=== PATIENT | male | born 1930 | race Caucasian/White ===

== ENCOUNTER 2017-06-28 12:52 | Emergency (ER) | payer OTHER ==
[~2017-06-28] VITALS: Ht 170.2 cm; Wt 77.1 kg
[2017-06-28 12:58] VITALS: BP 177/83
== END 2017-06-28 14:21 | disposition home or self-care (01) ==
LOC: ER 12:54
DX: S51.012A Laceration without foreign body of left elbow, initial encounter (principal); I10 Essential (primary) hypertension; I25.2 Old myocardial infarction; W01.0XXA Fall on same level from slipping, tripping and stumbling without subsequent striking against object, initial encounter; Y93.89 Activity, other specified; Y92.89 Other specified places as the place of occurrence of the external cause; Y99.9 Unspecified external cause status
CPT/HCPCS: 99283; A4606; A6403; Z7610

== ENCOUNTER 2017-06-30 11:50 | Emergency (ER) | payer OTHER ==
[~2017-06-30] VITALS: Ht 170.2 cm; Wt 72.6 kg
[2017-06-30 11:50] VITALS: BP 145/73
== END 2017-06-30 13:22 | disposition home or self-care (01) ==
LOC: ER 11:52
DX: S51.812A Laceration without foreign body of left forearm, initial encounter (principal); I10 Essential (primary) hypertension; I25.2 Old myocardial infarction; W01.0XXA Fall on same level from slipping, tripping and stumbling without subsequent striking against object, initial encounter; Y93.89 Activity, other specified; Y92.89 Other specified places as the place of occurrence of the external cause; Y99.8 Other external cause status
CPT/HCPCS: 99281; A4606; A6402; A6403; Z7502; Z7610

== ENCOUNTER 2017-07-03 13:35 | Emergency (ER) | payer BC, OTHER ==
[~2017-07-03] VITALS: Ht 170.2 cm; Wt 74.8 kg
[2017-07-03] MEDS ORDERED: SILVER NITRATE APPLICATOR 1 EA BOX ONE (14:33)
[2017-07-03 14:52] VITALS: BP 132/76
== END 2017-07-03 15:05 | disposition home or self-care (01) ==
LOC: ER 13:40
DX: S51.802D Unspecified open wound of left forearm, subsequent encounter (principal); I25.2 Old myocardial infarction; I10 Essential (primary) hypertension; W01.0XXD Fall on same level from slipping, tripping and stumbling without subsequent striking against object, subsequent encounter; Y93.89 Activity, other specified; Y92.89 Other specified places as the place of occurrence of the external cause; Y99.8 Other external cause status
CPT/HCPCS: 99282; A4606; A6402; Z7610

== ENCOUNTER 2018-02-09 09:00 | Emergency (ER) | payer BC, OTHER ==
[~2018-02-09] VITALS: Ht 170.2 cm; Wt 79.8 kg
--- NOTE | 2018-02-09 09:04 | NUR ---
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 VSS. NO ACUTE DISTRESS. NEG SOB. SAFETY MEASURES IN PLACE. CALL LIGHT WITHIN REACH.
--- NOTE | 2018-02-09 09:10 | NUR ---
NEW IV STARTED ON RFA, 18G. BLOOD DRAWN AND SENT TO LAB.
[2018-02-09 09:24] LABS: BASOPHILS # (AUTO) 0.1 /CMM (0.0-0.2); BASOPHILS % (AUTO) 0.7 % (0.0-2.0); EOSINOPHILS % (AUTO) 2.4 % (0.0-6.0); HEMATOCRIT 37 % (39-51); HEMOGLOBIN 12.6 g/dL (13.5-17.5); LYMPHOCYTES # (AUTO) 2.4 /CMM (0.8-4.8); LYMPHOCYTES % (AUTO) 32.7 % (20.0-44.0); MEAN CORPUSCULAR HGB CONC 34 g/dl (31.0-36.0); MEAN CORPUSCULAR VOLUME 95 fL (80-96); MONOCYTES # (AUTO) 0.6 /CMM (0.1-1.30); MONOCYTES % (AUTO) 8.3 % (2.0-12.0); NEUTROPHILS # (AUTO) 4.1 /CMM (1.8-8.9); NEUTROPHILS % (AUTO) 55.9 % (43.0-81.0); PLATELET COUNT (AUTO) 269 /CMM (150-450); RDW COEFFICIENT OF VARIATION 13.6 (11.5-15.0); RED BLOOD CELL COUNT(AUTO) 3.95 MIL/uL (4.5-6.0); WHITE BLOOD COUNT (AUTO) 7.4 K/uL (4.3-11.0)
[2018-02-09 09:31] LABS: CALCIUM, SERUM 9.3 mg/dL (8.5-10.1); CARBON DIOXIDE 29 mmol/L (21-32); CHLORIDE 106 mmol/L (98-107); CREATININE 1.2 mg/dL (0.6-1.3); GLUCOSE 117 mg/dL (74-106); POTASSIUM 4.4 mmol/L (3.5-5.1); SODIUM SERUM 140 mmol/L (136-145); UREA NITROGEN, BLOOD 25 mg/dL (7-18)
[2018-02-09 09:45] LABS: TROPONIN I < 0.017 ng/mL (0.00-0.056)
--- NOTE | 2018-02-09 11:00 | NUR ---
TROPONIN RESULTS NEGATIVE. REPEAT TROPONIN DRAWN
[2018-02-09 12:06] VITALS: BP 138/70
== END 2018-02-09 12:07 | disposition home or self-care (01) ==
LOC: ER 09:02
DX: R07.89 Other chest pain (principal); I25.2 Old myocardial infarction; I25.10 Atherosclerotic heart disease of native coronary artery without angina pectoris; I10 Essential (primary) hypertension; Z60.2 Problems related to living alone
CPT/HCPCS: 36415; 71045-TC; 80048-TC; 84484-TC; 85025-TC; A4606; Z7610

== ENCOUNTER 2021-11-30 16:41 | Inpatient (IN) | payer BC, OTHER ==
[~2021-11-30] VITALS: Ht 167.6 cm; Wt 65.8 kg
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
--- NOTE | 2021-11-30 17:10 | NUR ---
PT TAKEN TO CT VIA [facility]
--- NOTE | 2021-11-30 19:09 | NUR ---
COVID TEST COLLECTED AND SENT
[2021-11-30 19:10] LABS: CALCIUM, SERUM 9.1 mg/dL (8.5-10.1); CARBON DIOXIDE 27 mmol/L (21-32); CHLORIDE 106 mmol/L (98-107); CREATININE 1.2 mg/dL (0.6-1.3); GLUCOSE 90 mg/dL (74-106); POTASSIUM 3.9 mmol/L (3.5-5.1); SODIUM SERUM 139 mmol/L (136-145); UREA NITROGEN, BLOOD 28 mg/dL (7-18)
[2021-11-30 19:21] LABS: ALANINE AMINOTRANSFERASE 21 U/L (12-78); ALKALINE PHOSPHATASE 91 U/L (46-116); ASPARTATE AMINOTRANSFERASE 22 U/L (15-37); BILIRUBIN,DIRECT 0.1 mg/dL (0.0-0.2); BILIRUBIN,TOTAL 0.2 mg/dL (0.2-1.0); TOTAL PROTEIN, SERUM 7.4 g/dL (6.4-8.2)
[2021-11-30 19:25] LABS: ACETAMINOPHEN 0 ug/ml (10-30); ALCOHOL, BLOOD < 3 mg/dL (0-0)
--- NOTE | 2021-11-30 19:30 | NUR ---
MRSA SWAB COLLECTED AND SENT TO LAB. PATIENT'S BELONGINGS LIST DONE.
[2021-11-30] MEDS ORDERED: LIDOCAINE 2% JEL UROJET 10 ML MM ONE (19:37)
[2021-11-30 19:46] LABS: THYROID STIMULATING HORMONE 4.283 uIU/mL (0.358-3.74)
[2021-11-30 19:48] LABS: BASOPHILS % (AUTO) 0.6 % (0.0-2.0); EOSINOPHILS % (AUTO) 2.4 % (0.0-6.0); HEMATOCRIT 39 % (39-51); HEMOGLOBIN 12.8 g/dL (13.5-17.5); LYMPHOCYTES # (AUTO) 2.7 K/uL (0.8-4.8); LYMPHOCYTES % (AUTO) 36.8 % (20.0-44.0); MEAN CORPUSCULAR HGB CONC 33 g/dl (31.0-36.0); MEAN CORPUSCULAR VOLUME 98 fL (80-96); MONOCYTES # (AUTO) 0.6 K/uL (0.1-1.30); MONOCYTES % (AUTO) 8.8 % (2.0-12.0); NEUTROPHILS # (AUTO) 3.8 K/uL (1.8-8.9); NEUTROPHILS % (AUTO) 51.4 % (43.0-81.0); PLATELET COUNT (AUTO) 220 K/uL (150-450); RED BLOOD CELL COUNT(AUTO) 3.97 MIL/uL (4.5-6.0); WHITE BLOOD COUNT (AUTO) 7.3 K/uL (4.3-11.0)
--- NOTE | 2021-11-30 22:00 | NUR ---
URINE COLLECTED AND SENT TO LAB
[2021-11-30 22:41] LABS: BILIRUBIN,URINE NEGATIVE (NEGATIVE); COLOR,URINE YELLOW (YELLOW); LEUKOCYTE ESTERASE ,URINE NEGATIVE (NEGATIVE); NITRITE, URINE NEGATIVE (NEGATIVE); PH,URINE 6.5 (5.0-8.0); PROTEIN,URINE TRACE mg/dl (NEGATIVE); UGLUCOSE NEGATIVE (NEGATIVE); UROBILINOGEN,URINE 0.2 EU/dL (0.2)
[2021-11-30 23:17] LABS: BACTERIA,URINE Few /HPF (None Seen); RBC,URINE 21-50 /HPF (0-2); SQUAMOUS EPITHELIAL CELL,UR Few /HPF (None Seen); WBC,URINE 0-2 /HPF (0-3)
--- NOTE | 2021-11-30 23:43 | NUR ---
DEEPIKA CRISIS FELT FINISHER AT BEDSIDE.
--- NOTE | 2021-12-01 02:57 | NUR ---
contact Party Coordinator in AM To assist with patient transfer to [facility].
[2021-12-01] MEDS ORDERED: OLANZAPINE 5 MG TABLET ONE (02:58)
[2021-12-01] MEDS ORDERED: OLANZAPINE ZYDIS 5 MG TAB.RAPDIS PO ONE (03:00)
[2021-12-01] MEDS ORDERED: OLANZAPINE 5 MG TABLET PO ONE (03:00)
--- NOTE | 2021-12-01 07:54 | NUR ---
[facility] CALLED AND SPOKE WITH DR JACKSON,INTAKE WILL BE CALLED TO DEAL WITH INSURANCE AUTH OR TX TO OTHER FACILITY
--- NOTE | 2021-12-01 09:01 | NUR ---
FAXED CLINICALS TO [facility]
[2021-12-01] MEDS ORDERED: QUET25TA PO (09:39)
[2021-12-01] MEDS ORDERED: MEMA5TAB42 PO (09:39)
[2021-12-01] MEDS ORDERED: MIRT-90 PO (09:39)
--- NOTE | 2021-12-01 09:41 | NUR ---
PT WAS GIVEN AUTHORIZATION FOR THE PT TO STAY. WAITNG FOR BED FOR [facility] TO BE GIVEN BY NURSING SUP
--- NOTE | 2021-12-01 09:55 | NUR ---
ROOM 220-A
--- NOTE | 2021-12-01 10:37 | NUR ---
REPORT GIVEN TO MABEL FOR ANGELINA
[2021-12-01] MEDS ORDERED: BLOOD SUGAR DIAGNOSTIC 1 EACH STRIP IN ONE (12:00)
[2021-12-01] MEDS ORDERED: LORAZEPAM 0.5 MG TABLET PO PRN (12:00)
[2021-12-01] MEDS ORDERED: MAGNESIUM HYDROXIDE 30 ML UDC PO PRN (12:00)
[2021-12-01] MEDS ORDERED: ACETAMINOPHEN 325 MG TABLET PO PRN (12:00)
[2021-12-01] MEDS ORDERED: MAG HYDROX/AL HYDROX/SIMETH 30 ML UDC PO PRN (12:00)
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
[2021-12-01 13:46] VITALS: BP 158/78
--- NOTE | 2021-12-01 13:50 | NUR ---
OCTAVIA Initial Discharge Note: Patient resides at [address] [place] [address]; ([phone]). OCTAVIA attempted to contact pt's Mery ([phone]) to gather collateral and discuss treatment plan, however, the number has been disconnected. OCTAVIA will work with the MD, treatment team, and family to help coordinate appropriate discharge.
--- NOTE | 2021-12-01 13:50 | NUR ---
SW Admit Source: Patient placed on a 5150 hold for danger to others. Patient resides at [address] [place] [address]; ([phone]). SW attempted to contact pt's Mery ([phone]) to gather collateral and discuss treatment plan, however, the number has been disconnected.
--- NOTE | 2021-12-01 13:51 | NUR ---
OCTAVIA Family Contact: SW attempted to contact patient's Mery ([phone]) to gather collateral and discuss treatment/discharge plan. The phone number was disconnected.
--- NOTE | 2021-12-01 13:52 | NUR ---
UR NOTE: Per Sidra gan, Auth #[id number] Contact info : ENRIQUE Topete @[phone] FAX @[phone] Yoselyn case monitor stated on 12/02 CM will be assigned from [place] to pt and will follow up.
[2021-12-01 16:00] VITALS: BP 129/71
--- NOTE | 2021-12-01 16:55 | NUR ---
DR SAUNDERS WAS CONTACTED AND WAS INFORMED OF PT HX OF HTN. DR SAUNDERS STATED TO HAVE HOME MEDS CONTINUE AND HE WILL BE IN TOMORROW.
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
--- NOTE | 2021-12-01 18:11 | NUR ---
DR SAUNDERS ENTERED TalystS.
[2021-12-01 20:08] VITALS: BP 143/72
[2021-12-01] MEDS: ATORVASTATIN 10 MG TABLET PO SCH (21:29)
[2021-12-02] MEDS: ZOLPIDEM TARTRATE 5 MG TABLET PO PRN ×2 (02:03→21:40)
[2021-12-02 08:00] VITALS: BP 132/78
[2021-12-02 08:04] LABS: ALANINE AMINOTRANSFERASE 23 U/L (12-78); ALBUMIN 3.5 g/dL (3.4-5.0); ALKALINE PHOSPHATASE 109 U/L (46-116); ASPARTATE AMINOTRANSFERASE 38 U/L (15-37); BILIRUBIN,TOTAL 0.5 mg/dL (0.2-1.0); CALCIUM, SERUM 9.6 mg/dL (8.5-10.1); CARBON DIOXIDE 26 mmol/L (21-32); CHLORIDE 104 mmol/L (98-107); CREATININE 1.7 mg/dL (0.6-1.3); GLUCOSE 129 mg/dL (74-106); POTASSIUM 4.4 mmol/L (3.5-5.1); SODIUM SERUM 141 mmol/L (136-145); TOTAL PROTEIN, SERUM 8.3 g/dL (6.4-8.2); UREA NITROGEN, BLOOD 40 mg/dL (7-18)
[2021-12-02] MEDS: CARVEDILOL 6.25 MG TABLET PO SCH ×2 (08:40→17:43)
[2021-12-02] MEDS ORDERED: LISINOPRIL (10MG) 10 MG TABLET PO SCH (09:00)
[2021-12-02 09:10] LABS: CHOLESTEROL 180 mg/dL (<200); HDL CHOLESTEROL 49 mg/dL (40-60); TRIGLYCERIDES 68 mg/dL (30-150)
[2021-12-02 09:27] LABS: LDL 116 mg/dL (0-99)
[2021-12-02] MEDS: MEMANTINE HCL 5 MG TABLET PO SCH ×2 (10:37→17:42)
--- NOTE | 2021-12-02 10:57 | NUR ---
UR Note: OCTAVIA received a call from Darleen ([phone]) (F:[phone]) who is the assigned CM. Auth: [id number]. Daily clinicals required. OCTAVIA notified that pt will need a nursing facility, Darleen NUNEZ, stated that she will be able to help with SNF.
--- NOTE | 2021-12-02 12:30 | NUR ---
OCTAVIA Family Contact: Patient's Mery called the unit, SW spoke with Mery briefly but phone call was unclear. SW attempted to contact Mery back ([phone]) but was unavailable. OCTAVIA left a voicemail.
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
--- NOTE | 2021-12-02 14:50 | NUR ---
UR Note: OCTAVIA faxed Darleen ([phone]) (F:[phone]) who is the assigned CM. Auth: [id number]. OCTAVIA faxed patient's daily clinical for review.
[2021-12-02 16:00] VITALS: BP 102/70
[2021-12-02 19:51] VITALS: BP 135/73
[2021-12-02 19:58] VITALS: BP 135/73
[2021-12-02] MEDS: ATORVASTATIN 10 MG TABLET PO SCH (21:41)
[2021-12-02] MEDS: QUETIAPINE FUMARATE 25 MG TABLET PO SCH (21:41)
--- NOTE | 2021-12-03 05:07 | NUR ---
alert to self when placed in the bed he get OOB and he is not stable on his feet he is easily agitated and will strike out at the nurses he is cooperative when taking his meds at night but as the night moves forward he becomes increasing agitated. likes to sit in the sharon chair and watched TV before bed time swallows fluids and food w/o a problem asp precautions
[2021-12-03 08:00] VITALS: BP 128/79
[2021-12-03] MEDS: ESCITALOPRAM OXALATE (10 MG) 10 MG TABLET PO SCH (09:00)
[2021-12-03] MEDS: MEMANTINE HCL 5 MG TABLET PO SCH ×2 (09:00→17:00)
[2021-12-03] MEDS: CARVEDILOL 6.25 MG TABLET PO SCH ×2 (09:00→17:00)
[2021-12-03 09:10] LABS: CALCIUM, SERUM 9.4 mg/dL (8.5-10.1); CARBON DIOXIDE 28 mmol/L (21-32); CHLORIDE 105 mmol/L (98-107); CREATININE 2.2 mg/dL (0.6-1.3); GLUCOSE 108 mg/dL (74-106); POTASSIUM 5.1 mmol/L (3.5-5.1); SODIUM SERUM 142 mmol/L (136-145); UREA NITROGEN, BLOOD 63 mg/dL (7-18)
--- NOTE | 2021-12-03 10:00 | NUR ---
OCTAVIA Coordination of Care: Patient will follow up (Shafting Cleaner) Dr. Neli Villafana located [address] [place], [facility], [address]; ([phone]) on December 08 at [facility] who will monitor and provide psychotropic medications and will refer pt to a psychiatrist, scheduled by Luc medical receptionist. OCTAVIA faxed clinicals to the doctor office ([phone]).
--- NOTE | 2021-12-03 10:33 | NUR ---
UR Note: OCTAVIA faxed Darleen ([phone]) (F:[phone]) who is the assigned CM. Auth: [id number]. OCTAVIA faxed patient's daily clinical for review.
--- NOTE | 2021-12-03 12:54 | NUR ---
DPOA: OCTAVIA contacted patient's DPOA Raleigh ([phone]) and stated pt will be discharged 12/05, Wednesday, he stated he will chicken picker pt at 1:30PM.
--- NOTE | 2021-12-03 15:32 | NUR ---
Individual Counseling: SW attempted to meet with pt. in activity room. Pt. is not appropriate for therapeutic milieu at this time due to confusion/ Dementia. SW will continue to monitor patient's ability to participate in therapy.
[2021-12-03 16:00] VITALS: BP 128/79
--- NOTE | 2021-12-03 19:17 | NUR ---
bun 65,creatinine 2.2 aware new order BMP AM.
[2021-12-03 20:00] VITALS: BP 135/69
[2021-12-03] MEDS: ATORVASTATIN 10 MG TABLET PO SCH (21:38)
[2021-12-03] MEDS: QUETIAPINE FUMARATE 25 MG TABLET PO SCH (21:38)
[2021-12-03] MEDS: TAMSULOSIN 0.4 MG CAP.SR.24H PO SCH (21:38)
[2021-12-04] MEDS: ZOLPIDEM TARTRATE 5 MG TABLET PO PRN (00:03)
[2021-12-04 07:21] LABS: CALCIUM, SERUM 8.8 mg/dL (8.5-10.1); CREATININE 0.7 mg/dL (0.6-1.3); POTASSIUM 4.3 mmol/L (3.5-5.1)
[2021-12-04 07:26] LABS: BASOPHILS # (AUTO) 0.1 K/uL (0.0-0.2); EOSINOPHILS % (AUTO) 3.2 % (0.0-6.0); HEMATOCRIT 38 % (39-51); LYMPHOCYTES # (AUTO) 1.6 K/uL (0.8-4.8); LYMPHOCYTES % (AUTO) 25.6 % (20.0-44.0); MEAN CORPUSCULAR HGB CONC 34 g/dl (31.0-36.0); MEAN CORPUSCULAR VOLUME 86 fL (80-96); MONOCYTES # (AUTO) 0.5 K/uL (0.1-1.30); MONOCYTES % (AUTO) 8.4 % (2.0-12.0); NEUTROPHILS # (AUTO) 3.8 K/uL (1.8-8.9); NEUTROPHILS % (AUTO) 61.8 % (43.0-81.0); PLATELET COUNT (AUTO) 386 K/uL (150-450); RED BLOOD CELL COUNT(AUTO) 4.43 MIL/uL (4.5-6.0); WHITE BLOOD COUNT (AUTO) 6.1 K/uL (4.3-11.0)
[2021-12-04 08:00] VITALS: BP 129/69
[2021-12-04] MEDS ORDERED: ESCI5TAB PO (09:34)
[2021-12-04] MEDS ORDERED: MEMA5TAB PO (09:34)
[2021-12-04] MEDS ORDERED: QUET25TA PO (09:34)
[2021-12-04] MEDS: MEMANTINE HCL 5 MG TABLET PO SCH ×2 (09:57→17:12)
[2021-12-04] MEDS: ESCITALOPRAM OXALATE (10 MG) 10 MG TABLET PO SCH (09:57)
[2021-12-04] MEDS: ASPIRIN EC 81 MG TABLET.DR PO SCH (09:57)
--- NOTE | 2021-12-04 09:57 | NUR ---
UR Note: OCTAVIA faxed Darleen ([phone]) (F:[phone]) who is the assigned CM. Auth: [id number]. OCTAVIA faxed patient's daily clinical for review.
[2021-12-04] MEDS: CARVEDILOL 3.125 MG TABLET PO SCH ×2 (09:58→17:12)
[2021-12-04 10:00] LABS: PROSTATE SPECIFIC ANTIGEN SCR < 0.13 ng/mL (0.00-4.00)
[2021-12-04 16:00] VITALS: BP 134/76
[2021-12-04 20:00] VITALS: BP 126/60
[2021-12-04] MEDS: TAMSULOSIN 0.4 MG CAP.SR.24H PO SCH (21:36)
[2021-12-04] MEDS: QUETIAPINE FUMARATE 25 MG TABLET PO SCH (21:36)
[2021-12-04] MEDS: ATORVASTATIN 10 MG TABLET PO SCH (21:36)
[2021-12-05 08:00] VITALS: BP 103/60
--- NOTE | 2021-12-05 08:05 | NUR ---
OCTAVIA Discharge Note: Patient will discharge back home [place] at [address] [place] [address]; ([phone]). Patients TONY Storey ([phone]) will bean picker machine operator pt at 1:30PM. Patient is alert and oriented x1. Patient is happy to be going home. Patient denies suicidal or homicidal ideation. Patient denies visual/auditory hallucinations. Patient will follow up (Protection Officer) Dr. Neli Villafana located [address] [place], [facility], [address]; ([phone]) on December 08 at 11 oclock who will monitor and provide psychotropic medications and will refer pt to a psychiatrist, scheduled by Luc stradiology receptionist. OCTAVIA faxed clinicals to the doctor office ([phone]). Patient presents with euthymic mood and congruent affect. Addendum: 12/05/21 at 0943 by OCTAVIA SORIANO [address] unit [facility], [place] [address]; on December 13 at 1PM with DEA Martinez via teleConjur.
[2021-12-05 08:26] VITALS: BP 103/60
[2021-12-05] MEDS: CARVEDILOL 3.125 MG TABLET PO SCH (08:26)
[2021-12-05] MEDS: MEMANTINE HCL 5 MG TABLET PO SCH (08:28)
[2021-12-05] MEDS: ASPIRIN EC 81 MG TABLET.DR PO SCH (08:28)
[2021-12-05] MEDS: ESCITALOPRAM OXALATE (10 MG) 10 MG TABLET PO SCH (08:28)
--- NOTE | 2021-12-05 08:46 | NUR ---
Dr. Truong gave an order to D/C hold and D/C home today and psychiatrist send the e prescriptions to the pharmacy. Pts. TONY Storey will tile picker pt. at 1:30 pm.
--- NOTE | 2021-12-05 09:17 | NUR ---
UR Note: OCTAVIA faxed Darleen ([phone]) (F:[phone]) who is the assigned CM. Auth: [id number]. OCTAVIA faxed patient's daily clinical and stated dc for 12/05.
--- NOTE | 2021-12-05 09:40 | NUR ---
UR CONTACT: [facility] [address] [facility] [address], [place] [address]; on December 13 at 1PM with DEA Martinez. SW received a call from ENRIQUE Topete ([phone]) who scheduled this apt.
--- NOTE | 2021-12-05 13:30 | NUR ---
GPS/RN PT DISCHARGED HOME WITH TONY Storey ([phone]) PRESCRIPTIONS FROM DR SAUNDERS AND EXIT CARE INSTRUCTIONS PROVIDED. DR CARLTON SENT PRESCRIPTIONS ELECTRONICALLY. NO SI OR HI AT THE TIME OF DISCHARGE. PT REFUSED PICTURES ON DISCHARGE.PROPERTY RETURNED. LEFT UNIT VIA W/C TO THE LOBBY
== END 2021-12-05 13:30 | disposition home or self-care (01) | DRG 885 ==
LOC: ER 16:43 → TRANSITION 12-01 09:44 → GPS 12-01 10:56
PROVIDERS: ADMIT Psychiatry & Neurology Psychiatry; ATTEND Internal Medicine
DX: F29 Unspecified psychosis not due to a substance or known physiological condition (principal); N18.9 Chronic kidney disease, unspecified; N17.9 Acute kidney failure, unspecified; F03.91 Unspecified dementia, unspecified severity, with behavioral disturbance; I25.10 Atherosclerotic heart disease of native coronary artery without angina pectoris; E78.5 Hyperlipidemia, unspecified; I25.2 Old myocardial infarction; F41.9 Anxiety disorder, unspecified; I12.9 Hypertensive chronic kidney disease with stage 1 through stage 4 chronic kidney disease, or unspecified chronic kidney disease; N32.0 Bladder-neck obstruction; Z20.822 Contact with and (suspected) exposure to COVID-19; Z79.899 Other long term (current) drug therapy
CPT/HCPCS: 36415; 70450-TC; 71045-TC; 73140-TC; 76770-TC; 80048-TC; 80053-TC; 80061-TC; 80076-TC; 81001; 82962-TC; 84153-TC; 84154-TC; 84439-TC; 84443-TC; 85025-TC; 87081-TC; 97112-TC; 97116-TC; 97530-TC; C9803; G0480; J3490

== ENCOUNTER 2021-12-05 18:56 | Emergency (ER) | payer BC, OTHER ==
[~2021-12-05] VITALS: Ht 170.2 cm; Wt 59.0 kg
[~2021-12-05 18:56] MED LIST: ESCI5TAB PO; MEMA5TAB PO; QUET25TA PO
--- NOTE | 2021-12-05 19:35 | NUR ---
covid swab collected and sent to lab
--- NOTE | 2021-12-05 20:08 | NUR ---
urine collected and sent to lab
[2021-12-05 20:58] LABS: BASOPHILS % (AUTO) 0.2 % (0.0-2.0); EOSINOPHILS % (AUTO) 1.2 % (0.0-6.0); HEMATOCRIT 41 % (39-51); HEMOGLOBIN 13.4 g/dL (13.5-17.5); LYMPHOCYTES # (AUTO) 1.4 K/uL (0.8-4.8); LYMPHOCYTES % (AUTO) 13.1 % (20.0-44.0); MEAN CORPUSCULAR HGB CONC 33 g/dl (31.0-36.0); MEAN CORPUSCULAR VOLUME 99 fL (80-96); MONOCYTES # (AUTO) 0.6 K/uL (0.1-1.30); NEUTROPHILS # (AUTO) 8.5 K/uL (1.8-8.9); NEUTROPHILS % (AUTO) 79.5 % (43.0-81.0); PLATELET COUNT (AUTO) 154 K/uL (150-450); RED BLOOD CELL COUNT(AUTO) 4.12 MIL/uL (4.5-6.0); WHITE BLOOD COUNT (AUTO) 10.7 K/uL (4.3-11.0)
[2021-12-05 21:12] LABS: COLOR,URINE YELLOW (YELLOW); PH,URINE 8.5 (5.0-8.0)
[2021-12-05 21:13] LABS: BILIRUBIN,URINE SMALL (NEGATIVE); LEUKOCYTE ESTERASE ,URINE LARGE (NEGATIVE); UGLUCOSE NEGATIVE (NEGATIVE)
[2021-12-05 21:14] LABS: NITRITE, URINE NEGATIVE (NEGATIVE); PROTEIN,URINE 1+ mg/dl (NEGATIVE); UROBILINOGEN,URINE 0.2 EU/dL (0.2)
[2021-12-05 21:40] LABS: CALCIUM, SERUM 9.1 mg/dL (8.5-10.1); CARBON DIOXIDE 22 mmol/L (21-32); CHLORIDE 104 mmol/L (98-107); CREATININE 2.2 mg/dL (0.6-1.3); GLUCOSE 122 mg/dL (74-106); POTASSIUM 4.8 mmol/L (3.5-5.1); SODIUM SERUM 140 mmol/L (136-145)
[2021-12-05 21:43] LABS: UREA NITROGEN, BLOOD 89 mg/dL (7-18)
--- NOTE | 2021-12-05 21:43 | NUR ---
bun 89, md aware
[2021-12-05 21:52] LABS: ALANINE AMINOTRANSFERASE 29 U/L (12-78); ALBUMIN 3.1 g/dL (3.4-5.0); ALCOHOL, BLOOD < 3 mg/dL (0-0); ALKALINE PHOSPHATASE 104 U/L (46-116); ASPARTATE AMINOTRANSFERASE 30 U/L (15-37); BILIRUBIN,DIRECT 0.2 mg/dL (0.0-0.2); BILIRUBIN,TOTAL 0.8 mg/dL (0.2-1.0); TOTAL PROTEIN, SERUM 7.8 g/dL (6.4-8.2)
--- NOTE | 2021-12-05 21:56 | NUR ---
SPOKE WITH RUDOLPH CHURCHAL COORDINATOR REGARDING PT ADMISSION. CONSULTED IF PT CAN GO TO SNF DIRECTLY OR TO BE ADMITTED AGAIN?
[2021-12-05 21:57] LABS: ACETAMINOPHEN < 0 ug/ml (10-30)
[2021-12-05] MEDS ORDERED: QUETIAPINE FUMARATE 25 MG TABLET ONE (22:15)
--- NOTE | 2021-12-05 22:26 | NUR ---
SPOKE WITH MARK, LEARNING MANAGER OF [facility]. CLINICAL INFORMATION RELAYED
[2021-12-05] MEDS: QUETIAPINE FUMARATE 25 MG TABLET PO SCH (22:29)
[2021-12-05 22:34] LABS: BACTERIA,URINE 3+ /HPF (None Seen); RBC,URINE 21-50 /HPF (0-2); SQUAMOUS EPITHELIAL CELL,UR 0-2 /HPF (None Seen); WBC,URINE 21-50 /HPF (0-3)
--- NOTE | 2021-12-05 23:09 | NUR ---
KASSY BARTON TALKING TO HARRY JOHNSON MD
[2021-12-05] MEDS ORDERED: CEFTRIAXONE 1 G in IV D5W 50 ML IV ONE (23:30)
[2021-12-06] MEDS ORDERED: CEFTRIAXONE 1GM BAG (ER ONLY) 50 ML IV ONE (01:20)
--- NOTE | 2021-12-06 03:26 | NUR ---
GOING TO [facility] [address] [facility] [phone] ACCEPTING MD TRUJILLO ETA 3578. PER DECEMBER CM
[2021-12-06 04:00] VITALS: BP 125/67
--- NOTE | 2021-12-06 04:07 | NUR ---
Report given to Aspen CRUZ from [facility]
--- NOTE | 2021-12-06 04:32 | NUR ---
report given to transfer team.
== END 2021-12-06 04:40 | disposition short-term general hospital (02) ==
LOC: ER 19:10
DX: N39.0 Urinary tract infection, site not specified (principal); N17.9 Acute kidney failure, unspecified; R62.7 Adult failure to thrive; Z68.20 Body mass index [BMI] 20.0-20.9, adult; R53.1 Weakness; Z20.822 Contact with and (suspected) exposure to COVID-19; D64.9 Anemia, unspecified; Z79.899 Other long term (current) drug therapy; I25.2 Old myocardial infarction; I10 Essential (primary) hypertension; E78.5 Hyperlipidemia, unspecified; Z87.448 Personal history of other diseases of urinary system
CPT/HCPCS: J0696 ×16; 36415; 80048-TC; 80076-TC; 81001; 85025-TC; 87086-TC; 87186-TC; C9803; G0480